=== PATIENT | female | born 1955 | race Caucasian/White ===

== ENCOUNTER 2019-02-12 05:20 | Day surgery (SDC) ==
--- NOTE | 2019-02-05 08:15 | EKG Report ---
Test Performed on : 02/05/2019 07:51:38 AM Test Reason : PAT Blood Pressure : / mmHG Vent. Rate : 082 BPM Atrial Rate : 082 BPM P-R Int : 140 ms QRS Dur : 084 ms QT Int : 356 ms P-R-T Axes : 086 061 087 degrees QTc Int : 415 ms Normal sinus rhythm. Nonspecific ST and T wave abnormality Abnormal ECG When compared with ECG of 08-AUG-2017 07:50, No significant change was found Confirmed by Esvin COY, Buster Nolen ([id number]) on 02/06/2019 8:58:41 AM
[2019-02-05 08:26] LABS: URINE SOURCE CLEAN CATCH
[2019-02-05 08:42] LABS: BASO# 0.05 X1000 (0.0-0.2); BASO% 0.6 % (0.0-0.8); EOS# 0.17 X1000 (0.0-0.7); EOS% 1.9 % (0.0-10.0); HEMATOCRIT 40.1 % (37.0-47.0); HEMOGLOBIN 12.8 g/dL (12.0-16.0); IMM GRAN# 0.02 X1000 (0.0-0.04); IMM GRAN% 0.2 % (0.0-0.5); LYMPH# 3.28 X1000 (1.2-3.4); LYMPH% 36.9 % (20.5-51.1); MCH 29.4 PG (27-31); MCHC 31.9 g/dL (33-37); MCV 92.2 FL (81-99); MONO# 0.61 X1000 (0.11-0.59); MONO% 6.9 % (1.7-9.3); MPV 10.7 FL (7.4-10.4); NEUT# 4.75 X1000 (1.4-6.5); NEUT% 53.5 % (42.2-75.2); PLT 336 X1000 (130-400); RBC 4.35 XMIL (4.2-5.4); RDW 14.9 % (11.5-14.5); WBC 8.88 X1000 (4.8-10.8)
[2019-02-05 08:45] LABS: BILIRUBIN URINE NEGATIVE (NEGATIVE); BLOOD URINE MODERATE (NEGATIVE); COLOR YELLOW; GLUCOSE URINE NEGATIVE (NEGATIVE); KETONE URINE NEGATIVE (NEGATIVE); LEUKOCYTES URINE NEGATIVE (NEGATIVE); NITRITE URINE NEGATIVE (NEGATIVE); PROTEIN URINE NEGATIVE (NEGATIVE); SP GRAVITY URINE 1.019; TURBIDITY URINE HAZY (CLEAR); UROBILINOGEN URINE NORMAL (NORMAL)
[2019-02-05 08:48] LABS: UR EPITHELIAL CELLS <10 /HPF (<10); URINE BACTERIA NEGATIVE /HPF; URINE RBC TNTC /HPF (<10); URINE WBC <10 /HPF (<10)
[2019-02-05 08:49] LABS: INR 0.92; PROTIME 12.4 Seconds (11.0-16.0)
[2019-02-05 08:50] LABS: HEMOGLOBIN A1C 5.5 % (4.8-6.0); PTT 28.2 Seconds (22.3-41.8)
[2019-02-05 09:02] LABS: AGAP 13; BUN 16 mg/dL (8-22); CALCIUM 8.9 mg/dL (8.8-10.2); CHLORIDE 103 mmol/L (98-107); COSMO 286; CREATININE 0.5 mg/dL (0.5-0.9); ESTIMATED GFR > 60; GLUCOSE 123 mg/dL (70-104); POTASSIUM 5.2 mmol/L (3.5-5.1); SODIUM 142 mmol/L (136-145); TCO2 26 mmol/L (25-35)
[2019-02-12] MEDS ORDERED: PEPCID ONE (06:19)
[2019-02-12] MEDS ORDERED: REGLAN ONE (06:19)
[2019-02-12] MEDS ORDERED: LYRICA ONE (06:19)
[2019-02-12] MEDS ORDERED: COLACE ONE (06:19)
[2019-02-12] MEDS ORDERED: LR 1,000 ML ONE (06:20)
[2019-02-12] MEDS ORDERED: KEFZOL 1 GM/D5W 1 GM/50 ML IVPB ONE (06:20)
[2019-02-12] MEDS ORDERED: CELEBREX ONE (06:20)
[2019-02-12] MEDS ORDERED: VERSED ONE (06:42)
[2019-02-12] MEDS ORDERED: FENTANYL ONE ×2 (06:42→08:23)
[2019-02-12] MEDS ORDERED: DIPRIVAN 1% ONE (06:43)
[2019-02-12] MEDS ORDERED: ROBINUL ONE (06:47)
[2019-02-12] MEDS ORDERED: QUELICIN (DOSE) ONE (06:47)
[2019-02-12] MEDS ORDERED: XYLOCAINE-MPF 2% ONE (06:47)
[2019-02-12] MEDS ORDERED: MARCAINE 0.25% PF ONE (06:57)
[2019-02-12] MEDS ORDERED: DURAMORPH ONE (06:57)
[2019-02-12] MEDS ORDERED: TORADOL ONE (06:57)
[2019-02-12] MEDS ORDERED: VANCOMYCIN ONE (06:58)
[2019-02-12] MEDS ORDERED: SODIUM CHLORIDE 0.9% ONE (06:58)
[2019-02-12] MEDS ORDERED: EXPAREL 1.3% ONE (06:58)
[2019-02-12] MEDS ORDERED: CYKLOKAPRON 1,000 MG/NS 1,000 MG/100 ML IVPB ONE (06:58)
[2019-02-12] MEDS ORDERED: DECADRON ONE (08:21)
[2019-02-12] MEDS ORDERED: EPHEDRINE ONE (08:21)
[2019-02-12] MEDS ORDERED: NEO-SYNEPHRINE ONE (08:21)
[2019-02-12] MEDS ORDERED: ZOFRAN ONE (08:21)
[2019-02-12] MEDS ORDERED: OFIRMEV 1000 MG/ISOTONIC SOLN 1,000 MG/100 ML BOTTLE ONE (08:21)
[2019-02-12] MEDS ORDERED: NS 1,000 ML ONE (10:08)
[2019-02-12 10:17] LABS: URINE SOURCE CATH
[2019-02-12 10:23] LABS: BILIRUBIN URINE NEGATIVE (NEGATIVE); BLOOD URINE SMALL (NEGATIVE); COLOR YELLOW; GLUCOSE URINE NEGATIVE (NEGATIVE); KETONE URINE NEGATIVE (NEGATIVE); LEUKOCYTES URINE NEGATIVE (NEGATIVE); NITRITE URINE NEGATIVE (NEGATIVE); PROTEIN URINE TRACE mg/dL (NEGATIVE); SP GRAVITY URINE 1.022; TURBIDITY URINE CLEAR (CLEAR); UR EPITHELIAL CELLS <10 /HPF (<10); URINE BACTERIA NEGATIVE /HPF; URINE RBC 20-40 /HPF (<10); URINE WBC <10 /HPF (<10); UROBILINOGEN URINE NORMAL (NORMAL)
--- NOTE | 2019-02-12 10:25 | Diag Imaging Result Doc PS360 ---
EXAM: SHOULDER-LEFT 02/12/2019 HISTORY: left total shoulder TECHNIQUE: AP portable COMMENT: There is a total shoulder arthroplasty. There is soft tissue gas. There is no evidence of acute bony abnormality. IMPRESSION: Postsurgical changes. Electronically signed by Ruben Schroeder 02/12/2019 10:23 AM
[2019-02-12] MEDS ORDERED: ZOFRAN PO PRN (10:30)
[2019-02-12] MEDS ORDERED: MORPHINE IV PRN ×3 (10:30)
[2019-02-12] MEDS ORDERED: OXY IR PO PRN (10:30)
[2019-02-12] MEDS: NS 1,000 ML IV SCH ×2 (10:30→21:22)
[2019-02-12] MEDS ORDERED: CYKLOKAPRON 1,000 MG in NS 100 ML IV ONE (13:45)
[2019-02-12] MEDS: TYLENOL PO SCH ×2 (14:40→21:22)
[2019-02-12] MEDS: KEFZOL 1 GM/D5W 1 GM/50 ML IVPB IV SCH (19:23)
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
[2019-02-12] MEDS ORDERED: MAG-OX PO SCH (21:00)
[2019-02-12] MEDS: COLACE PO SCH (21:22)
[2019-02-12] MEDS: OXY IR PO PRN (21:23)
[2019-02-12] MEDS: PERIDEX MT SCH (21:23)
[2019-02-13] MEDS: OXY IR PO PRN ×3 (01:31→08:32)
[2019-02-13] MEDS: TYLENOL PO SCH ×2 (02:43→08:32)
[2019-02-13] MEDS: KEFZOL 1 GM/D5W 1 GM/50 ML IVPB IV SCH (02:43)
[2019-02-13] MEDS: NS 1,000 ML IV SCH (04:09)
[2019-02-13 07:05] LABS: HEMATOCRIT 31.4 % (37.0-47.0); HEMOGLOBIN 9.9 g/dL (12.0-16.0)
[2019-02-13 07:16] LABS: AGAP 11; BUN 9 mg/dL (8-22); CALCIUM 8.3 mg/dL (8.8-10.2); CHLORIDE 108 mmol/L (98-107); COSMO 281; CREATININE 0.5 mg/dL (0.5-0.9); ESTIMATED GFR > 60; GLUCOSE 83 mg/dL (70-104); POTASSIUM 4.7 mmol/L (3.5-5.1); SODIUM 142 mmol/L (136-145); TCO2 23 mmol/L (25-35)
[2019-02-13 07:23] VITALS: BP 124/58
--- NOTE | 2019-02-13 07:28 | ORTHOPAEDICS PROGRESS NOTE ---
DATE: 02/13/2019 SUBJECTIVE: The patient is a 64-year-old female who is 1 day status post left reverse total shoulder arthroplasty. She is currently resting comfortably. OBJECTIVE: On physical exam, patient's left upper extremity dressing is intact. The patient is having expected ecchymosis of left upper arm posteriorly. She is neurovascularly distally. Good auto hauler strength. LABORATORY: Her labs are pending. IMPRESSION: Postoperative day #1 status post left reverse shoulder total arthroplasty. PLAN: At this point, patient will plan on discharging home. We will arrange for outpatient physical therapy. Patient will follow up in the office on 02/24/2019. cc: Dominik Anderson MD
[2019-02-13] MEDS: PERIDEX MT SCH (08:32)
[2019-02-13] MEDS: COLACE PO SCH (08:33)
== END 2019-02-13 10:26 | disposition home or self-care (01) ==
LOC: 4N 05:20 → OPS 05:20 → EDSTATUS 07:30 → PREINTOOBSV 13:39 → OPS 02-13 10:26
PROVIDERS: ATTEND Orthopaedic Surgery Adult Reconstructive Orthopaedic Surgery